=== PATIENT | female | born 1960 ===

== ENCOUNTER 2017-07-17 03:51 | Emergency (ER) | payer MEDICAID, OTHER ==
[~2017-07-17] VITALS: Ht 162.6 cm; Wt 100.0 kg
[2017-07-17] MEDS ORDERED: LORazepam 2 MG/ML, 1ML ONE (05:40)
[2017-07-17] MEDS ORDERED: SODIUM CHLORIDE 0.9% 1,000ML IVBOLUS ONE (06:00)
[2017-07-17] MEDS ORDERED: LORazepam 2 MG/ML, 1ML IVPush ONE (06:00)
[2017-07-17] MEDS ORDERED: SODIUM CHLORIDE FLUSH 10ML SYR IVF ONE (06:00)
[2017-07-17 07:37] VITALS: BP 146/96
== END 2017-07-17 07:40 | disposition home or self-care (01) ==
LOC: ED 07:34
DX: F41.1 Generalized anxiety disorder (principal)
CPT/HCPCS: 93005; 96361; 96374; 99284; J2060; J7030

== ENCOUNTER 2019-11-11 13:58 | Emergency (ER) | payer MEDICAID, OTHER ==
[~2019-11-11] VITALS: Ht 162.6 cm; Wt 78.0 kg
--- NOTE | 2019-11-11 14:18 | NUR ---
THIS IS A 59 YO F W/ C/O DIZZINESS THAT STARTED THIS MORNING. PT IS REQ MED REFILL FOR DM. FSBS IN TRIAGE 389. PT DENIES CP/SOB/N/V/D. PT RESTING ON Hydrocision W/ CALL LIGHT IN REACH. SOFIE VANCE AT BEDSIDE. SIDE RAILS UPX2. AWAITING ORDERS.
[2019-11-11] MEDS ORDERED: METF500T17 PO (14:22)
[2019-11-11] MEDS ORDERED: INSU100I13 SQ (14:22)
[2019-11-11] MEDS ORDERED: LISI-167 PO (14:22)
[2019-11-11] MEDS ORDERED: SODIUM CHLORIDE 0.9% 1,000ML IVBOLUS ONE (14:30)
--- NOTE | 2019-11-11 14:35 | NUR ---
Pt resting in gurney, NAD, P/W/D, RESP WNL, FCS no SOB noted. WCTM.
--- NOTE | 2019-11-11 14:38 | NUR ---
PIV STARTED, LABS DRAWN, 1L NS STARTED. REPORT GIVEN TO LINCOLN PARKER.
--- NOTE | 2019-11-11 14:50 | NUR ---
Bedside report from Relief ELENA Anderson. SONY
[2019-11-11 14:53] LABS: BASOPHILS # (AUTO) 0.04 x10^3/uL (0-0.1); BASOPHILS % (AUTO) 1 % (0-1); EOSINOPHILS # (AUTO) 0.05 x10^3/uL (0-0.4); EOSINOPHILS % (AUTO) 1 % (1-7); LYMPHOCYTES # (AUTO) 2.47 x10^3/uL (1-3.4); LYMPHOCYTES % (AUTO) 32 % (22-44); MD NO; MEAN CORPUSCULAR HGB CONC 33.2 g/dL (32.4-35.8); MEAN CORPUSCULAR VOLUME 90.3 fL (80-100); MEAN PLATELET VOLUME 9.6 fL (7.4-10.4); MONOCYTES # (AUTO) 0.61 x10^3/uL (0.2-0.8); MONOCYTES % (AUTO) 8 % (2-9); NEUTROPHILS # (AUTO) 4.65 x10^3/uL (1.8-6.8); NEUTROPHILS % (AUTO) 59 % (42-75); PLATELET COUNT 184 x10^3/uL (130-400); RED BLOOD COUNT 4.88 x10^6/uL (3.82-5.3); RED CELL DISTRIBUTION WIDTH 14.2 % (9.6-15.2)
[2019-11-11 15:05] LABS: ALBUMIN 3.3 g/dL (3.4-5.0); ANION GAP 10 mmol/L (5-15); CALCIUM 9.9 mg/dL (8.5-10.1); CHLORIDE 101 mmol/L (98-107)
[2019-11-11 15:06] LABS: CREATININE 0.92 mg/dL (0.55-1.02)
--- NOTE | 2019-11-11 15:53 | NUR ---
Pt resting in gurney, NAD, P/W/D, RESP WNL, FCS no SOB noted. WCTM.
[2019-11-11 16:12] VITALS: BP 139/83
--- NOTE | 2019-11-11 16:15 | NUR ---
PT given discharge instructions and they have confirmed that they understand the instructions. Patient ambulatory with steady gait. Pt confirmed she would follow up with a primary to get established with prescriptions and
== END 2019-11-11 16:16 | disposition home or self-care (01) ==
LOC: ED 15:25
DX: E11.65 Type 2 diabetes mellitus with hyperglycemia (principal); Z76.0 Encounter for issue of repeat prescription; I10 Essential (primary) hypertension; R42 Dizziness and giddiness
CPT/HCPCS: 36415; 80048; 82040; 82962; 83605; 85025; 96360; 99283; J7030

== ENCOUNTER 2020-03-18 00:59 | Emergency (ER) | payer MEDICAID, OTHER ==
[~2020-03-18] VITALS: Ht 162.6 cm; Wt 83.0 kg
[~2020-03-18 00:59] MED LIST: INSU100I13 SQ; LISI-167 PO; METF500T17 PO
[2020-03-18] MEDS ORDERED: ONDANSETRON 2MG/ML, 2ML ONE (01:47)
[2020-03-18 01:51] LABS: BASOPHILS # (AUTO) 0.03 x10^3/uL (0-0.1); BASOPHILS % (AUTO) 1 % (0-1); EOSINOPHILS # (AUTO) 0.09 x10^3/uL (0-0.4); EOSINOPHILS % (AUTO) 2 % (1-7); LYMPHOCYTES # (AUTO) 1.51 x10^3/uL (1-3.4); LYMPHOCYTES % (AUTO) 31 % (22-44); MD NO; MEAN CORPUSCULAR HEMOGLOBIN 30.1 pg (27.0-34.8); MEAN CORPUSCULAR HGB CONC 33.7 g/dL (32.4-35.8); MEAN CORPUSCULAR VOLUME 89.3 fL (80-100); MEAN PLATELET VOLUME 9.8 fL (7.4-10.4); MONOCYTES # (AUTO) 0.38 x10^3/uL (0.2-0.8); MONOCYTES % (AUTO) 8 % (2-9); NEUTROPHILS # (AUTO) 2.88 x10^3/uL (1.8-6.8); NEUTROPHILS % (AUTO) 59 % (42-75); PLATELET COUNT 134 x10^3/uL (130-400); RED BLOOD COUNT 5.14 x10^6/uL (3.82-5.3); RED CELL DISTRIBUTION WIDTH 13.2 % (9.6-15.2)
--- NOTE | 2020-03-18 01:57 | NUR ---
Patient presents to ER c/o shakiness and fatigue x1 month. Patient states today is different because she is also experiencing blurry vision, lack of taste, sweatiness, and nausea since today. Patient was evaluated by EMS at home and recommended to come here; patient arrived POV with an IV in place. Patient is in NAD. Respirations even and unlabored.
[2020-03-18] MEDS ORDERED: ONDANSETRON 2MG/ML, 2ML IVPush ONE (02:00)
[2020-03-18] MEDS ORDERED: SODIUM CHLORIDE 0.9% 1,000ML IVBOLUS ONE (02:00)
[2020-03-18 02:01] LABS: ALANINE AMINOTRANSFERASE 144 U/L (12-78); ALBUMIN 3.2 g/dL (3.4-5.0); ANION GAP 9 mmol/L (5-15); CALCIUM 9.4 mg/dL (8.5-10.1); CHLORIDE 105 mmol/L (98-107); CREATININE 0.79 mg/dL (0.55-1.02)
[2020-03-18 02:04] LABS: ALKALINE PHOSPHATASE 247 U/L (45-117); BILIRUBIN,TOTAL 0.9 mg/dL (0.2-1.0); TOTAL PROTEIN 8.7 g/dL (6.4-8.2)
[2020-03-18 02:27] LABS: ACETONE, SERUM Trace (Negative)
[2020-03-18 02:37] VITALS: BP 138/69
--- NOTE | 2020-03-18 02:38 | NUR ---
Patient up with steady gait to BR.
== END 2020-03-18 03:23 | disposition home or self-care (01) ==
LOC: ED 01:29
DX: E11.65 Type 2 diabetes mellitus with hyperglycemia (principal); R53.1 Weakness; I10 Essential (primary) hypertension; Z87.891 Personal history of nicotine dependence; Z86.19 Personal history of other infectious and parasitic diseases
CPT/HCPCS: 36415; 80053; 82010; 82962; 85025; 96374; 99283; J2405; J7030

== ENCOUNTER 2020-06-06 07:51 | Emergency (ER) | payer MEDICAID ==
[~2020-06-06] VITALS: Ht 162.6 cm; Wt 86.5 kg
[2020-06-06] MEDS ORDERED: SODIUM CHLORIDE FLUSH 10ML SYR IVF ONE (08:30)
--- NOTE | 2020-06-06 08:45 | NUR ---
PT AMBULATORY TO ROOM FROM TRIAGE. C/O SOB, FATIGUE, NAUSEA, COLD AND HOT SWEATS FOR PAST WEEK. PT IN GOWN AND ALL MONITORS PLACED. ER PA AT BEDSIDE, POC DISCUSSED AND ORDERS REC'D. PT VSS, CALL LIGHT W/I REACH.
[2020-06-06 08:56] LABS: BASOPHILS % (AUTO) 1 % (0-1); EOSINOPHILS % (AUTO) 2 % (1-7); LYMPHOCYTES % (AUTO) 39 % (22-44); MEAN CORPUSCULAR HEMOGLOBIN 30.5 pg (27.0-34.8); MEAN CORPUSCULAR HGB CONC 33.4 g/dL (32.4-35.8); MEAN PLATELET VOLUME 9.8 fL (7.4-10.4); MONOCYTES % (AUTO) 9 % (2-9); NEUTROPHILS % (AUTO) 49 % (42-75); PLATELET COUNT 185 x10^3/uL (130-400); RED BLOOD COUNT 5.07 x10^6/uL (3.82-5.3); RED CELL DISTRIBUTION WIDTH 13.5 % (9.6-15.2)
[2020-06-06 08:58] LABS: MD NO
[2020-06-06 09:05] LABS: ALANINE AMINOTRANSFERASE 173 U/L (12-78); ALBUMIN 3.5 g/dL (3.4-5.0); ANION GAP 9 mmol/L (5-15); CALCIUM 9.7 mg/dL (8.5-10.1); CHLORIDE 107 mmol/L (98-107); CREATININE 0.76 mg/dL (0.55-1.02)
[2020-06-06 09:09] LABS: ALKALINE PHOSPHATASE 210 U/L (45-117); BILIRUBIN,TOTAL 0.5 mg/dL (0.2-1.0); TOTAL PROTEIN 8.9 g/dL (6.4-8.2); TROPONIN I < 0.015 ng/mL (0.000-0.045)
--- NOTE | 2020-06-06 09:38 | NUR ---
ALL TESTS RESULTED, CHART UP FOR RECHECK
--- NOTE | 2020-06-06 10:25 | NUR ---
US TECH AT BEDSIDE.
[2020-06-06 10:59] VITALS: BP 145/82
--- NOTE | 2020-06-06 11:45 | NUR ---
Patient/Caregiver given discharge instructions and they have confirmed that they understand the instructions. Patient ambulatory with steady gait.
== END 2020-06-06 12:09 | disposition home or self-care (01) ==
LOC: ED 08:30
DX: R06.00 Dyspnea, unspecified (principal); R00.0 Tachycardia, unspecified; R11.2 Nausea with vomiting, unspecified; I10 Essential (primary) hypertension; E11.9 Type 2 diabetes mellitus without complications; Z87.891 Personal history of nicotine dependence
CPT/HCPCS: 36415; 71045; 76700; 80053; 83880; 84484; 85025; 85379; 93005; 99285